=== PATIENT | male | born 1965 | race Caucasian/White ===

== ENCOUNTER 2022-04-27 09:37 | Outpatient (REF) | payer OTHER, SELFPAY ==
--- NOTE | ~2022-04-27 | XR_ITS ---
EXAMINATION: XR ELBOW, RIGHT CLINICAL INFORMATION: Pain COMPARISON: None TECHNIQUE: Three views of the right elbow. FINDINGS: Degenerative changes of the elbow with triceps tendon enthesopathy and degenerative spurring. Soft tissues swelling along the posterior aspect of the arm. Questionable displacement of the fat pads which could be seen in the setting of joint effusion. No discrete fracture line appreciated. No dislocation. XR/XR elbow RT 2V IMPRESSION: Questionable displacement of the fat pads which could be seen in the setting of possible joint effusion with a background of degenerative changes of the elbow. If any history of trauma the questionable effusion would make a radiographically occult fracture difficult to exclude. Soft tissue swelling along the posterior aspect of the arm.
== END 2022-04-27 09:38 | disposition home or self-care (01) ==
LOC: HO.HMGCX 09:37
PROVIDERS: PCP Internal Medicine; Visit Provider Internal Medicine
DX: M25.521 Pain in right elbow (principal)
CPT/HCPCS: 73070

== ENCOUNTER → 2022-05-28 13:53 | Outpatient (BNVA) | payer OTHER, SELFPAY | PROVIDERS: PCP Internal Medicine; Visit Provider Physician Assistant | DX: M77.11 Lateral epicondylitis, right elbow (principal) | CPT/HCPCS: 99202 ==

== ENCOUNTER 2023-02-14 14:45 | Outpatient (AMB) | payer OTHER, SELFPAY ==
--- NOTE | 2023-02-14 15:02 | MHC.OFFVIS ---
Intake Vital Signs 02/14/23 15:03 Height 6 ft Weight 236 lb BMI 32.0 Intake Visit Reasons: ov- Lateral epicondylitis, right elbow Intake Note: Davidson 57 yr old male presents today to review MRI. States he has not had the MRI done due to no one reaching out to schedule appt. Patient states at times after work he feels his elbow gets hot and feels very tender. Allergies No Known Allergies Allergy (Verified 02/14/23 15:05) HPI ov- Lateral epicondylitis, right elbow HPI Details 57-year-old male who returns to the office today for right elbow pain. He continues to have tenderness and warmth in his elbow after work. He did have bursitis and was seen by his pcp who gave him Meloxicam which was helpful. [facility] Medical History Allergic rhinitis Annual physical exam COPD (chronic obstructive pulmonary disease) Social History Housing: House Patient Tobacco Use Status: Current everyday Tobacco user Cigarettes Per Day: 10 Years Smoked: 30 years e-Cigarette/Vaping Use: Never Used Current occupational status: employed Cognitive needs: No Hearing needs: No Vision needs: No Review of Systems Const All systems reviewed & are unremarkable except as noted in HPI and below Physical Exam Vital Signs: BMI result Body Mass Index 32.0 Extrem Other: Right elbow normal to inspection. He does have a trace olecranon bursitis. No redness, warmth or tenderness to palpation. He has full ROM without pain. NVI. Assessment & Plan Assessment & Plan (1) Bursitis: Code(s): M71.9 - Bursopathy, unspecified Plan We discussed conservative management, which includes compression, NSAIDs and activity modifications. If symptoms worsen, the area becomes red, hot and painful, they should return to see me. Otherwise, PRN. Patient Instructions: Scribed for Mallory Ornelas PA-C, by Oli Krishna medical reception specialist, on 02/14/2023 at 3:00 PM EST. Mallory Reyes PA-C, have personally reviewed and agree with the information entered by the scribe. Coding Level of Care Code Est Pt Level 3 (96156) Diagnoses Bursitis M71.9
[2023-02-14 15:03] VITALS: BMI 32.0
== END 2023-02-14 16:17 | disposition home or self-care (01) ==
PROVIDERS: PCP Internal Medicine; Visit Provider Physician Assistant
DX: M77.11 Lateral epicondylitis, right elbow (principal)
CPT/HCPCS: 99213

== ENCOUNTER → 2023-02-14 14:45 | Outpatient (BNVA) | payer OTHER, SELFPAY | PROVIDERS: PCP Internal Medicine; Visit Provider Physician Assistant | DX: M77.11 Lateral epicondylitis, right elbow (principal) | CPT/HCPCS: 99212 ==

== ENCOUNTER 2023-03-10 15:06 | Outpatient (REF) | payer OTHER, SELFPAY ==
[2023-03-10 16:01] LABS: MANUAL DIFF FLAG NO
[2023-03-10 16:26] LABS: Basophils Percent Auto 0.6 % (0-2); Eosinophils Absolute Auto 0.1 X10*3/uL (0.0-0.4); Eosinophils Percent Auto 1.2 % (0-4); Hemoglobin 15.4 g/dl (14.0-18.0); Imm Gran Abs Auto 0.02 X10*3/uL (0.00-0.03); Imm Gran Pct Auto 0.3 % (0.0-0.4); Lymphocytes Absolute Auto 3.1 X10*3/uL (1.2-4.9); Lymphocytes Percent Auto 44.7 % (20-40); Mean Corpuscular HGB Conc 32.8 g/dl (31.0-36.0); Mean Corpuscular Hemoglobin 31.2 pg (27.0-33.0); Mean Corpuscular Volume 95.1 fL (80.0-98.0); Mean Platelet Volume 10.2 fL (9.4-12.4); Monocytes Absolute Auto 0.6 X10*3/uL (0.1-1.2); Neutrophils Absolute Auto 3.1 x10*3/uL (2.0-8.3); Neutrophils Percent Auto 45.2 % (45-73); Platelet Count 186 X10*3/uL (160-400); Red Blood Count 4.94 X10*6/uL (4.60-5.80); Red Cell Distribution Width 12.9 % (11.0-16.0); White Blood Count 6.9 X10*3/uL (4.8-10.8)
[2023-03-10 17:05] LABS: Alanine Aminotransferase 39 U/L (0-40); Albumin Level 4.1 g/dL (3.5-5.0); Alkaline Phosphatase 86 U/L (39-117); Anion Gap 10 (12-20); Aspartate Amino Transferase 35 U/L (5-37); Bilirubin Total 0.4 mg/dL (0.0-1.0); Blood Urea Nitrogen 22 mg/dL (9-16); Calcium 9.3 mg/dL (8.4-10.2); Carbon Dioxide 26 mmol/L (22-29); Chloride 109 mmol/L (96-108); Estimated Glomerular Filt Rate > 60; Glucose Random 83 mg/dL (60-115); Potassium 4.2 mmol/L (3.3-5.1); Sodium 141 mmol/L (135-145); Total Protein 6.9 g/dL (6.5-8.0)
== END 2023-03-10 15:07 | disposition home or self-care (01) ==
LOC: HO.HMGCLDS 15:06
PROVIDERS: PCP Internal Medicine; Visit Provider Internal Medicine
DX: R19.7 Diarrhea, unspecified (principal)
CPT/HCPCS: 36415; 80053; 85025

== ENCOUNTER 2023-03-11 05:45 | Outpatient (REF) | payer OTHER, SELFPAY ==
[2023-03-11 14:10] LABS: E. coli EAEC Detected (Not Detect.)
[2023-03-11 14:11] LABS: Adenovirus F 40/41 Not Detected (Not Detect.); Astrovirus Not Detected (Not Detect.); Campylobacter Not Detected (Not Detect.); Cryptosporidium Not Detected (Not Detect.); Cyclospora cayetanensis Not Detected (Not Detect.); E. coli ETEC Not Detected (Not Detect.); E. coli O157 Not Detected (Not Detect.); Entamoeba histolytica Not Detected (Not Detect.); Giardia lamblia Not Detected (Not Detect.); Norovirus GI/GII Not Detected (Not Detect.); Plesiomonas shigelloides Not Detected (Not Detect.); Rotavirus A Not Detected (Not Detect.); Salmonella Not Detected (Not Detect.); Sapovirus Not Detected (Not Detect.); Shigella sp./EIEC Not Detected (Not Detect.); Vibrio Not Detected (Not Detect.); Vibrio Cholerae Not Detected (Not Detect.); Yersinia enterocolitica Not Detected (Not Detect.)
[2023-03-11 14:13] LABS: E. coli STEC Detected (Not Detect.)
== END 2023-03-11 05:46 | disposition home or self-care (01) ==
LOC: HO.HMGCLNP 05:45
PROVIDERS: PCP Internal Medicine; Visit Provider Internal Medicine
DX: R19.7 Diarrhea, unspecified (principal)
CPT/HCPCS: 87507

== ENCOUNTER 2023-04-08 12:10 | Outpatient (AMB) | payer OTHER, SELFPAY ==
--- NOTE | 2023-04-08 12:21 | MHC.PC.OV ---
Vital Signs 04/08/23 12:22 Height 6 ft Weight 238 lb BMI 32.3 BP 130/80 Blood Pressure Location Lt brachial Position Sitting Pulse 105 H Pulse Source Pulse Oximeter Pulse Oximetry (%) 93 Oxygen Delivery Method Room Air Intake Visit Reasons: Ongoing abdominal pain/diarrhea Allergies No Known Allergies Allergy (Verified 04/08/23 12:22) Tobacco use date assessed: 04/08/23 HPI Ongoing abdominal pain/diarrhea HPI Details Pt presents for f/u of 2 weeks of acute diarrhea. Diarrhea improved after Cipro but patient complains of increase bloating and gas. He denies hematochezia melena fever chills nausea vomiting. [facility] Medical History Annual physical exam Allergic rhinitis COPD (chronic obstructive pulmonary disease) Social History Housing: House Patient Tobacco Use Status: Current everyday Tobacco user Cigarettes Per Day: 10 Years Smoked: 30 years e-Cigarette/Vaping Use: Never Used Current occupational status: employed Cognitive needs: No Hearing needs: No Vision needs: No Questionnaire Thrive Questionnaire Date Thrive assessed: 10/09/21 Review of Systems Const All systems reviewed & are unremarkable except as noted in HPI and below Reports no additional complaints Eyes Reports no additional complaints ENT Reports no additional complaints Card Reports no additional complaints Resp Reports no additional complaints GI Reports no additional complaints Reports no additional complaints Physical exam (Primary Care) Vital Signs: Last Vital Signs Pulse 105 H 04/08/23 12:22 BP 140/90 H 04/08/23 12:22 Pulse Ox 93 04/08/23 12:22 Oxygen Delivery Method Room Air 04/08/23 12:22 BMI result Body Mass Index 32.3 Tobacco/Smoking Status: Tobacco use Status Tobacco use date assessed 04/08/23 04/08/23 12:24 Patient Tobacco Use Status Current everyday Tobacco 04/08/23 12:24 e-Cigarette/Vaping Use Never Used 04/08/23 12:24 Thrive Assessment: Date of Thrive Assessment Date Thrive assessed 10/09/21 04/08/23 12:24 Const General: no acute distress HENMT Ears: hearing grossly normal bilaterally Face and sinus: Yes normal facial exam Eyes General: appearance normal, both eyes and all related structures Resp Effort & Inspection: normal respiratory effort Auscultation: clear to auscultation bilaterally Cardio Rhythm: regular rhythm Heart sounds: S1 normal heart sound present and S2 normal heart sound present GI Inspection: Yes normal to inspection Palpation (GI): Soft to palpation Percussion: Yes normal to percussion Auscultation: normal bowel sounds Assessment and Plan Assessment & Plan (1) Diarrhea: Code(s): R19.7 - Diarrhea, unspecified Plan: Supportive care and diet changing including avoiding raw meat products discussed with the patient He was advised to take probiotics for 2 weeks if the symptoms persist patient will be referred to GI (2) COPD (chronic obstructive pulmonary disease): Code(s): J44.9 - Chronic obstructive pulmonary disease, unspecified Plan: Continue Trelegy (3) Hx of colonoscopy: Comment: 2009, Dr. Melgar. Pt refused colonoscopy 03/23, check Cologuard. Code(s): Z98.890 - Other specified postprocedural states Orders: Referrals Cologuard Test Z12.11 - Encounter for screening for malignant neoplasm of colon, Z12.12 - Encounter for screening for malignant neoplasm of rectum Coding Level of Care Code Est Pt Level 4 (61550) Diagnoses Diarrhea R19.7 COPD (chronic obstructive pulmonary disease) J44.9 Hx of colonoscopy Z98.890
[2023-04-08 12:22] VITALS: BP 130/80; PULSE 105; O2SAT 93; BMI 32.3
== END 2023-04-08 13:09 | disposition home or self-care (01) ==
PROVIDERS: PCP Internal Medicine; Visit Provider Internal Medicine
DX: R19.7 Diarrhea, unspecified (principal); J44.9 Chronic obstructive pulmonary disease, unspecified; Z98.890 Other specified postprocedural states
CPT/HCPCS: 99214

== ENCOUNTER 2023-05-04 12:20 | Outpatient (AMB) | payer OTHER, SELFPAY ==
--- NOTE | 2023-05-04 12:31 | MHC.PC.OV ---
Vital Signs 05/04/23 12:33 Height 6 ft Weight 236 lb BMI 32.0 BP 126/85 Blood Pressure Location Lt brachial Position Sitting Pulse 105 H Pulse Source Pulse Oximeter Pulse Oximetry (%) 96 Oxygen Delivery Method Room Air Intake Visit Reasons: Knee pain Intake Note: Pt is here today for a sick visit. Pt c/o R knee discomfort for couple of months now. Pt states that the pain is getting worst now. Allergies No Known Allergies Allergy (Verified 05/04/23 12:36) Medication List - Last Reconciled 05/04/23 by Tasha Sinha MD clobetasol 0.05% 1 appl topical DAILY fluticasone propionate 50 mcg/actuation 1 spray intranasal DAILY nfkbqdflovo-zwooctxrf-yrrrwtvv 100-62.5-25 mcg (Trelegy Ellipta) 1 inh inhalation DAILY Tobacco use date assessed: 04/08/23 Dental Screening Dental Screen Date: 05/04/23 Did you have a dental visit in the last 12 months?: Yes Did you have a dental problem in the last 6 months where you did not have access to dental care?: No Was dental information given to patient?: Patient has dentist HPI Knee pain HPI Details Pt presents c/o R knee stiffness, discomfort worse when walking, occasionally instability and crepitus for 2 months. Patient denies any injury or joint swelling. He wants to see ortho for evaluation. COPD is stable on Trelegy. [facility] Medical History Annual physical exam Allergic rhinitis COPD (chronic obstructive pulmonary disease) Social History Housing: House Patient Tobacco Use Status: Current everyday Tobacco user Cigarettes Per Day: 10 Years Smoked: 30 years e-Cigarette/Vaping Use: Never Used Current occupational status: employed Cognitive needs: No Hearing needs: No Vision needs: No Questionnaire PHQ-9 Over the last 2 weeks, how often have you been bothered by any of the following problems? 1. Little interest or pleasure in doing things: not at all 2. Feeling down, depressed, or hopeless: not at all 3. Trouble falling or staying asleep, or sleeping too much: nearly every day 4. Feeling tired or having little energy: not at all 5. Poor appetite or overeating: not at all 6. Feeling bad about yourself - or that you are a failure or have let yourself or your family down: not at all 7. Trouble concentrating on things, such as reading the newspaper or watching television: not at all 8. Moving or speaking so slowly that other people could have noticed. Or the opposite - being so fidgety or restless that you have been moving around a lot more than usual: not at all 9. Thoughts that you would be better off or of hurting yourself in some way: not at all Total score: 3 Depression Screening Interpretation: Negative Depression Screening Done: Yes Source: Developed by Drs. Jeremy Brown, Annie Hammond, Gerry Donald and colleagues, with an educational alessandra from [employer]. Thrive Questionnaire Date Thrive assessed: 05/04/23 I am a: Patient What is your living situation today?: I have a steady place to live Within the past 12 months, did the food you bought not last and you didn't have the money to get more?: Never true Within the past 12 months, did you worry whether your food would run out before you got money to buy more?: Never true Do you have trouble paying for medicines?: No Do you have trouble getting transportation to medical appointments?: No Do you have trouble paying your heating and electricity bill?: No Do you have trouble taking care of your child, family member or friend?: No Do you have trouble with day-to-day activities such as bathing, preparing meals, shopping, managing finances, etc.?: No Are you currently unemployed and looking for a job?: No Are you interested in more education?: No Please select the resources that you would like help with: None MARCELLA-7 AMB Questionnaire MARCELLA-7 Date MARCELLA - 7 assessed: 05/04/23 Feeling nervous, anxious, or on edge: 0 = Not at all Not being able to stop or control worryin = Not at all Worrying too much about different things: 0 = Not at all Trouble relaxin = Not at all Being so restless that it is hard to sit still: 0 = Not at all Becoming easily annoyed or irritable: 0 = Not at all Feeling afraid as if something awful might happen: 0 = Not at all Total MARCELLA-7 score (0-4 normal; 5-9 mild; 10-14 moderate; 15-21 severe): 0 Source: Developed by Drs. Jeremy Brown, Annie Hammond, Gerry Donald and colleagues, with an educational alessandra from [employer]. Review of Systems Const All systems reviewed & are unremarkable except as noted in HPI and below Reports no additional complaints Eyes Reports no additional complaints ENT Reports no additional complaints Card Reports no additional complaints GI Reports no additional complaints Reports no additional complaints Physical exam (Primary Care) Vital Signs: Last Vital Signs Pulse 105 H 05/04/23 12:33 BP 138/96 H 05/04/23 12:33 Pulse Ox 96 05/04/23 12:33 Oxygen Delivery Method Room Air 05/04/23 12:33 BMI result Body Mass Index 32.0 Tobacco/Smoking Status: Tobacco use Status Tobacco use date assessed 04/08/23 05/04/23 12:33 Patient Tobacco Use Status Current everyday Tobacco 05/04/23 12:33 e-Cigarette/Vaping Use Never Used 05/04/23 12:33 PHQ-9: PHQ-9 Score PHQ-9: Total score 3 05/04/23 12:38 Depression Screening Interpretation: Negative Thrive Assessment: Date of Thrive Assessment Date Thrive assessed 05/04/23 05/04/23 12:38 Const General: no acute distress HENMT Head: Yes normal to inspection Throat: Yes posterior oropharynx normal Neck Neck: Yes supple Resp Effort & Inspection: normal respiratory effort Auscultation: diminished lung sounds Cardio Rhythm: regular rhythm Heart sounds: S1 normal heart sound present and S2 normal heart sound present Extrem Other: This is slightly decreased range of motion and crepitus of right knee, no soft tissue swelling erythema warmth General: Yes no clubbing, cyanosis or edema Assessment and Plan Assessment & Plan (1) Right knee pain: Code(s): M25.561 - Pain in right knee Plan: Supportive care discussed with the patient. He declined x-ray and requested referral to orthopedic surgeon (2) COPD (chronic obstructive pulmonary disease): Code(s): J44.9 - Chronic obstructive pulmonary disease, unspecified Plan: cont Trelegy Orders: Referrals Orthopedics Referral M25.561 - Pain in right knee Coding Level of Care Code Est Pt Level 3 (59463) Diagnoses Right knee pain M25.561 COPD (chronic obstructive pulmonary disease) J44.9
[2023-05-04 12:33] VITALS: BP 126/85; PULSE 105; O2SAT 96; BMI 32.0
== END 2023-05-04 13:40 | disposition home or self-care (01) ==
PROVIDERS: PCP Internal Medicine; Visit Provider Internal Medicine
DX: M25.561 Pain in right knee (principal); J44.9 Chronic obstructive pulmonary disease, unspecified
CPT/HCPCS: 99213

== ENCOUNTER 2023-06-20 08:31 | Outpatient (AMB) | payer OTHER, SELFPAY ==
--- NOTE | 2023-06-20 08:42 | A.OFFVIS_ITS ---
Intake Vital Signs 06/20/23 08:43 Height 6 ft Weight 236 lb BMI 32.0 Intake Visit Reasons: new Prob- Pain in right knee Intake Note: Davidson michaels 58 year old male presents today with complaints of right knee pain. Patient reports discomfort in the anterior aspect of knee for about 2 months that came on suddenly. His discomfort is constant and feels like his knee will give out with walking. No previous tx. Allergies No Known Allergies Allergy (Verified 06/20/23 08:49) HPI new Prob- Pain in right knee HPI Details 58-year-old male who presents to the off ice today for evaluation of right knee pain for 2 months. He states he has constant discomfort in the anterior aspect of his knee which is aggravated with ambulation and stair use. He denies any pain at night. He also c/o his knee giving out with ambulation. He has not had any treatment for his knee and denies any recent injury. He is currently working and works for 10 hours a day. [facility] Medical History Annual physical exam Allergic rhinitis COPD (chronic obstructive pulmonary disease) Social History Housing: House Patient Tobacco Use Status: Current everyday Tobacco user Cigarettes Per Day: 10 Years Smoked: 30 years e-Cigarette/Vaping Use: Never Used Current occupational status: employed Cognitive needs: No Hearing needs: No Vision needs: No Review of Systems Const All systems reviewed & are unremarkable except as noted in HPI and below Physical Exam Vital Signs: BMI result Body Mass Index 32.0 Extrem Other: Right knee: Skin intact, no erythema or joint effusion. Lateral retropatellar tenderness present. Full ROM with crepitus. Negative Anju?s. No ligamentous laxity. NVI. Results Reviewed Results Reviewed: Xrays were obtained in the office today and personally reviewed by me of the right knee show mild Oa with lateralization of the patella Assessment & Plan Assessment & Plan (1) Patellofemoral arthritis of right knee: Code(s): M17.11 - Unilateral primary osteoarthritis, right knee Plan We discussed options which include PT, NSAIDs and injections. The patient will defer on the injection today and proceed with PT and NSAIDs. He was also placed in a Janumet knee brace in the office today. If symptoms persist, the patient will contact me for an injection, otherwise, PRN. Orders: Orders PT Evaluation and Treatment Today M17.11 - Unilateral primary osteoarthritis, r ight knee XR knee standing BI Today M25.561 - Pain in right knee, M25.562 - Pain in left knee XR knee RT 2V Today M25.569 - Pain in unspecified knee Patient Instructions: Scribed for Mallory Ornelas PA-C, by Oli Krishna medical insurance biller, on 06/20/2023 at 8:30 AM EST. Mallory Reyes PA-C, have personally reviewed and agree with the information entered by the scribe. Coding Level of Care Code Est Pt Level 3 (09885) Diagnoses Patellofemoral arthritis of right knee M17.11
[2023-06-20 08:43] VITALS: BMI 32.0
== END 2023-06-20 09:21 | disposition home or self-care (01) ==
PROVIDERS: PCP Internal Medicine; Visit Provider Physician Assistant
DX: M17.11 Unilateral primary osteoarthritis, right knee (principal)
CPT/HCPCS: 99213

== ENCOUNTER 2023-06-20 09:12 | Outpatient (REF) | payer OTHER, SELFPAY ==
--- NOTE | ~2023-06-20 | XR_ITS ---
EXAMINATION: XR RIGHT KNEE XR AP STANDING BILATERAL KNEES CLINICAL INFORMATION: Pain in right knee. COMPARISON: None available. TECHNIQUE: AP standing view of bilateral knees. Lateral and sunrise views of the right knee. FINDINGS: Single AP view of the left knee demonstrates mild medial and lateral joint space loss with tiny marginal osteophytes. Right Knee: Moderate joint effusion. Mild medial and lateral joint space loss with tiny tricompartmental osteophytes. XR/XR knee standing BI IMPRESSION: Mild degenerative changes. Moderate joint effusion.
--- NOTE | ~2023-06-20 | XR_ITS ---
EXAMINATION: XR RIGHT KNEE XR AP STANDING BILATERAL KNEES CLINICAL INFORMATION: Pain in right knee. COMPARISON: None available. TECHNIQUE: AP standing view of bilateral knees. Lateral and sunrise views of the right knee. FINDINGS: Single AP view of the left knee demonstrates mild medial and lateral joint space loss with tiny marginal osteophytes. Right Knee: Moderate joint effusion. Mild medial and lateral joint space loss with tiny tricompartmental osteophytes. XR/XR knee RT 2V IMPRESSION: Mild degenerative changes. Moderate joint effusion.
== END 2023-06-20 09:13 | disposition home or self-care (01) ==
LOC: HO.HOSX 09:12
PROVIDERS: Visit Provider Physician Assistant
DX: M17.11 Unilateral primary osteoarthritis, right knee (principal); M25.562 Pain in left knee
CPT/HCPCS: 73560; 73565

== ENCOUNTER 2023-08-26 13:56 | Outpatient (RCR) | payer OTHER, SELFPAY ==
--- NOTE | 2023-08-26 14:47 | MHC.PT.EP ---
[facility] [place] Office [place] Office [place] Office [address] Joselyn Matthew [address] [phone] F: [phone] F: [phone] F: [phone] F: [phone] Physical Therapy Plan of Care Date of Evaluation: 08/26/23 Date of Surgery: Diagnosis: patellofemoral arthritis of R knee. Assessment: Patient is a 58 year old R handed male who presents with s/s consistent with R knee patellofemoral joing OA, R knee pain. 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 Patient past medical history includes back pain and COPD, ashtma.. Current impairments include pain, flexibility, ROM, activity tolerance and functional mobility. Functional limitations include decreased ability to stand, knee, squat, and work in certain positions. Patient is motivated with good rehab potential. Skilled PT will address impairments and functional limitations in order to achieve goals. Frequency and Duration: The patient will be seen 1x/week for 6 weeks as needed. Short Term Goals: I with HEP - 2 weeks Return to work pain free - 4 weeks Hypoid Gear Generator Goals: LEFS 70/80 - 6 weeks HS/Gastroc/Quad flex WNL Normal patellar mob - 6 weeks Crepidus absent - 6 weeks Treatment Plan: Modalities to reduce pain, spasms and effusion. Manual therapy to restore motion and function. Therapeutic exercise to improve strength and flexibility. Neuromuscular re-education for posture and balance. Therapeutic activities to return to functional activities of daily living. Electronically signed by: Ced Montalvo, PT Please sign and return to therapist. Thank you for your referral.
--- NOTE | 2024-05-09 10:10 | MHC.PT.DC ---
[facility] [place] Office [place] Office [place] Office [address] Joselyn Matthew [address] [phone] F: [phone] F: [phone] F: [phone] F: [phone] Physical Therapy Discharge Report Diagnosis: patellofemoral arthritis of R knee. Date of Surgery: Date of Evaluation: 08/26/23 Date of Discharge: 09/02/23 Treatments to Date: 1 Cancellations to Date: No Shows to Date: Discharge Status: Patient Elected to Stop Discharge Summary: Patient is a 58 year old R handed male who presents with s/s consistent with R knee patellofemoral joing OA, R knee pain. 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 Patient past medical history includes back pain and COPD, ashtma.. Current impairments include pain, flexibility, ROM, activity tolerance and functional mobility. Functional limitations include decreased ability to stand, knee, squat, and work in certain positions. Patient is motivated with good rehab potential. Skilled PT will address impairments and functional limitations in order to achieve goals. Electronically signed by: Ced Montalvo, PT Please sign and return to therapist. Thank you for your referral.
== END 2024-05-09 10:10 | disposition home or self-care (01) ==
LOC: HO.PTCHIC 13:56
PROVIDERS: PCP Internal Medicine; Visit Provider Physician Assistant
DX: M17.11 Unilateral primary osteoarthritis, right knee (principal)
CPT/HCPCS: 97110; 97161

== ENCOUNTER 2024-11-14 14:01 | Outpatient (AMB) | payer OTHER, SELFPAY ==
[2024-11-14 14:21] VITALS: BP 130/86; PULSE 98; RESP 18; TEMP 36.8; O2SAT 95; BMI 33.1
--- NOTE | 2024-11-14 14:21 | MHC.PC.OV ---
Vital Signs 11/14/24 14:21 Height 6 ft Weight 244 lb BMI 33.1 BP 130/86 Blood Pressure Location Lt brachial Position Sitting Respiration 18 Pulse 98 Pulse Source Pulse Oximeter Temp 98.2 F Temp Source Oral Pulse Oximetry (%) 95 Oxygen Delivery Method Room Air Intake Visit Reasons: PE Intake Note: Pt is here today for PE. Pt states that he would like a referral to General surgery for a lump on L finger. Allergies No Known Allergies Allergy (Verified 11/14/24 14:22) Medication List - Last Reconciled 11/14/24 by Tasha Sinha MD albuterol sulfate 90 mcg/actuation 2 puffs inhalation QID clobetasol 0.05% 1 appl topical DAILY fluticasone propionate 50 mcg/actuation 1 spray intranasal DAILY Tobacco use date assessed: 11/14/24 Dental Screening Dental Screen Date: 11/14/24 Did you have a dental visit in the last 12 months?: Yes Did you have a dental problem in the last 6 months where you did not have access to dental care?: No Was dental information given to patient?: Patient has dentist HPI PE HPI Details Patient presents for a physical. He was seen by laboratory supervisor at [facility] in July by telehealth. Patient had pulmonary function tests done which revealed mild obstruction normal lung volumes normal CO2 diffusing capacity. Patient misunderstood recommendation to use albuterol 4 times a day. He stopped using Trelegy. Patient reports episodes of wheezing and coughing on daily basis also at night. He denies PND or orthopnea. Patient will have right knee surgery. He complains of right middle finger cyst which interferes with patient's ability to use his hand and would like to be referred to hand surgeon. [facility] Medical History (Updated 11/14/24 @ 15:11 by Tasha Sinha MD) Annual physical exam Allergic rhinitis COPD (chronic obstructive pulmonary disease) Social History Housing: House Patient Tobacco Use Status: Former Tobacco user (December 2023) Cigarettes Per Day: 10 Years Smoked: 30 years e-Cigarette/Vaping Use: Never Used service: No Current occupational status: employed Cognitive needs: No Hearing needs: No Vision needs: No Questionnaire PHQ-9 Over the last 2 weeks, how often have you been bothered by any of the following problems? 1. Little interest or pleasure in doing things: not at all 2. Feeling down, depressed, or hopeless: not at all 3. Trouble falling or staying asleep, or sleeping too much: nearly every day 4. Feeling tired or having little energy: not at all 5. Poor appetite or overeating: not at all 6. Feeling bad about yourself - or that you are a failure or have let yourself or your family down: not at all 7. Trouble concentrating on things, such as reading the newspaper or watching television: not at all 8. Moving or speaking so slowly that other people could have noticed. Or the opposite - being so fidgety or restless that you have been moving around a lot more than usual: not at all 9. Thoughts that you would be better off or of hurting yourself in some way: not at all Total score: 3 Depression Screening Interpretation: Negative Depression Screening Done: Yes 84222 - PHQ-9 Billing: Yes Source: Developed by Drs. Jeremy Brown, Annie Hammond, Gerry Donald and colleagues, with an educational alessandra from [employer]. Thrive Questionnaire Date Thrive assessed: 11/14/24 I am a: Patient What is your living situation today?: I have a steady place to live Within the past 12 months, did the food you bought not last and you didn't have the money to get more?: Never true Within the past 12 months, did you worry whether your food would run out before you got money to buy more?: Never true Do you have trouble paying for medicines?: No Do you have trouble getting transportation to medical appointments?: No Do you have trouble paying your heating and electricity bill?: No Do you have trouble taking care of your child, family member or friend?: No Do you have trouble with day-to-day activities such as bathing, preparing meals, shopping, managing finances, etc.?: No Are you currently unemployed and looking for a job?: No Are you interested in more education?: No Please select the resources that you would like help with: None THRIVE Score: 0 AUDIT C Alcohol Use Questionnaire (AUDIT-C) 1. How often do you have a drink containing alcohol?: Monthly or less 2. How many drinks containing alcohol do you have on a typical day when you are drinking?: 1 or 2 3. How often do you have six or more drinks on one occasion?: Never Total Score: 1 MARCELLA-7 AMB Questionnaire MARCELLA-7 Date MARCELLA - 7 assessed: 11/14/24 Feeling nervous, anxious, or on edge: 0 = Not at all Not being able to stop or control worryin = Not at all Worrying too much about different things: 0 = Not at all Trouble relaxin = Not at all Being so restless that it is hard to sit still: 0 = Not at all Becoming easily annoyed or irritable: 0 = Not at all Feeling afraid as if something awful might happen: 0 = Not at all Total MARCELLA-7 score (0-4 normal; 5-9 mild; 10-14 moderate; 15-21 severe): 0 Source: Developed by Drs. Jeremy Brown, Annie Hammond, Gerry Donald and colleagues, with an educational alessandra from [employer]. MARCELLA-7 Assessment Billing MARCELLA-7 Assessment Tool: MARCELLA-7 Assessment 55860 Review of Systems Const All systems reviewed & are unremarkable except as noted in HPI and below Eyes Reports no additional complaints ENT Reports no additional complaints Card Reports no additional complaints Resp Reports no additional complaints GI Reports no additional complaints Reports no additional complaints Physical exam (Primary Care) Vital Signs: Last Vital Signs Temp 98.2 F 11/14/24 14:21 Pulse 98 11/14/24 14:21 Resp 18 11/14/24 14:21 BP 130/86 11/14/24 14:21 Pulse Ox 95 11/14/24 14:21 Oxygen Delivery Method Room Air 11/14/24 14:21 BMI result Body Mass Index 33.1 Tobacco/Smoking Status: Tobacco use Status Tobacco use date assessed 11/14/24 11/14/24 14:24 Patient Tobacco Use Status Former Tobacco user (11/14/24 14:37 2023) e-Cigarette/Vaping Use Never Used 11/14/24 14:24 PHQ-9: PHQ-9 Score PHQ-9: Total score 3 11/14/24 14:24 Depression Screening Interpretation: Negative Thrive Assessment: Date of Thrive Assessment Date Thrive assessed 11/14/24 11/14/24 14:24 Const General: no acute distress HENMT Head: Yes normal to inspection Face and sinus: Yes normal facial exam Mouth: Normal oral and palatal mucosa present Throat: Yes posterior oropharynx normal Neck Neck: Yes no lymphadenopathy and Yes supple Resp Effort & Inspection: normal respiratory effort Auscultation: wheezes and diminished lung sounds Cardio Rhythm: regular rhythm Heart sounds: S1 normal heart sound present and S2 normal heart sound present GI Inspection: Yes normal to inspection Palpation (GI): Soft to palpation Percussion: Yes normal to percussion Auscultation: normal bowel sounds Coding Level of Care Code Est Pt Prev Care 40-64y(34539) Diagnoses COPD (chronic obstructive pulmonary disease) J44.9 Annual physical exam Z00.00 Additional Codes MARCELLA-7 Assessment Billing - MARCELLA-7 Assessment Tool: MARCELLA-7 Assessment 03038 ([id number]) PHQ-9 - 23090 - PHQ-9 Billing: Yes ([id number]) Assessment & Plan Assessment & Plan (1) COPD (chronic obstructive pulmonary disease): Comment: PFT 06/2024 mild obstruction normal lung volumes normal CO diffusing capacity, had a telehealth visit with laboratory supervisor Dr. Hernandez 07/2024, no f/u Code(s): J44.9 - Chronic obstructive pulmonary disease, unspecified Category: Medical Plan: Patient was advised to restart Trelegy and use albuterol as needed only, he will follow-up in 1 month (2) Annual physical exam: Code(s): Z00.00 - Encounter for general adult medical examination without abnormal findings Category: Medical Plan: Well-balanced diet regular physical activity discussed with the patient. He declined colonoscopy Cologuard will be ordered Orders: Orders UA w Microscopic Today J44.9 - Chronic obstructive pulmonary disease, unspecified, Z00.00 - Encounter for general adult medical examination without abnormal findings, Z98.890 - Other specified postprocedural states Comprehensive [place]. Panel Fast Today J44.9 - Chronic obstructive pulmonary disease, unspecified, Z00.00 - Encounter for general adult medical examination without abnormal findings, Z98.890 - Other specified postprocedural states Complete Blood Count Auto Diff Today J44.9 - Chronic obstructive pulmonary disease, unspecified, Z00.00 - Encounter for general adult medical examination without abnormal findings, Z98.890 - Other specified postprocedural states Lipid Panel Today J44.9 - Chronic obstructive pulmonary disease, unspecified, Z00.00 - Encounter for general adult medical examination without abnormal findings, Z98.890 - Other specified postprocedural states PSA,Total (Free>4and<10) Today J44.9 - Chronic obstructive pulmonary disease, unspecified, Z00.00 - Encounter for general adult medical examination without abnormal findings, Z98.890 - Other specified postprocedural states Referrals Hand Surgery Referral M67.441 - Ganglion, right hand Cologuard Test Z12.11 - Encounter for screening for malignant neoplasm of colon, Z12.12 - Encounter for screening for malignant neoplasm of rectum Medications: Refilled lfmabnhrlxm-stergjfwh-uqbcbyqm 100-62.5-25 mcg (Trelegy Ellipta) 1 inh inhalation DAILY 60 ea 4RF J44.9 - Chronic obstructive pulmonary disease, unspecified
== END 2024-11-14 15:13 | disposition home or self-care (01) ==
LOC: HO.HMCC 14:02
PROVIDERS: PCP Internal Medicine; Visit Provider Internal Medicine
DX: J44.9 Chronic obstructive pulmonary disease, unspecified (principal); Z00.00 Encounter for general adult medical examination without abnormal findings

== ENCOUNTER → 2024-11-14 14:01 | Outpatient (BNVA) | payer OTHER, SELFPAY | PROVIDERS: PCP Internal Medicine; Visit Provider Internal Medicine | DX: Z00.00 Encounter for general adult medical examination without abnormal findings (principal); J44.9 Chronic obstructive pulmonary disease, unspecified | CPT/HCPCS: 96127 ==

== ENCOUNTER 2024-11-19 06:06 | Outpatient (REF) | payer OTHER, SELFPAY ==
[2024-11-19 10:03] LABS: MANUAL DIFF FLAG NO
[2024-11-19 10:07] LABS: Basophils Absolute Auto 0.1 X10*3/uL (0.0-0.2); Eosinophils Absolute Auto 0.1 X10*3/uL (0.0-0.4); Eosinophils Percent Auto 2.2 % (0-4); Hematocrit 44.7 % (42.0-52.0); Hemoglobin 14.2 g/dl (14.0-18.0); Imm Gran Abs Auto 0.02 X10*3/uL (0.00-0.03); Imm Gran Pct Auto 0.3 % (0.0-0.4); Lymphocytes Absolute Auto 2.8 X10*3/uL (1.2-4.9); Lymphocytes Percent Auto 45.5 % (20-40); Mean Corpuscular HGB Conc 31.8 g/dl (31.0-36.0); Mean Corpuscular Hemoglobin 30.5 pg (27.0-33.0); Mean Corpuscular Volume 95.9 fL (80.0-98.0); Mean Platelet Volume 9.7 fL (9.4-12.4); Monocytes Absolute Auto 0.5 X10*3/uL (0.1-1.2); Monocytes Percent Auto 7.9 % (2-11); Neutrophils Absolute Auto 2.7 x10*3/uL (2.0-8.3); Neutrophils Percent Auto 43.1 % (45-73); Platelet Count 193 X10*3/uL (160-400); Red Blood Count 4.66 X10*6/uL (4.60-5.80); White Blood Count 6.2 X10*3/uL (4.8-10.8)
[2024-11-19 10:15] LABS: Appearance Urine Clear; Color Urine Yellow; Glucose Urine UA Negative (Negative); Leukocyte Esterase Urine Negative (Negative); Nitrite Urine Negative (Negative); PH 5.5 (5.0-9.0); Specific Gravity - Urine 1.025 (1.005-1.025); Urine Blood Negative (Negative); Urine Ketones Negative (Negative); Urine Protein Trace mg/dL (Neg-Trace)
[2024-11-19 10:20] LABS: Bacteria Urine None Seen (None Seen); Hyaline Casts Urine 0-2 /LPF (0-2); RBC Urine 0-2 /HPF (0-2); Squamous Epithelial Cell Urine 0-2 /HPF (0-2); WBC Urine 0-5 /HPF (0-5)
[2024-11-19 10:26] LABS: Alanine Aminotransferase 40 U/L (0-40); Albumin Level 3.9 g/dL (3.5-5.0); Alkaline Phosphatase 93 U/L (39-117); Anion Gap 11 (12-20); Aspartate Amino Transferase 36 U/L (5-37); Bilirubin Total 0.5 mg/dL (0.0-1.0); Blood Urea Nitrogen 17 mg/dL (9-16); Calcium 8.7 mg/dL (8.4-10.2); Carbon Dioxide 24 mmol/L (22-29); Chloride 110 mmol/L (96-108); Cholesterol 176 mg/dL (<200); Estimated Glomerular Filt Rate > 60; Glucose Fasting 110 mg/dL (60-99); HDL Cholesterol 49 mg/dL (>40); LDL Cholesterol Calculated 96 mg/dL (<100); Potassium 4.6 mmol/L (3.3-5.1); Sodium 140 mmol/L (135-145); Total Protein 6.7 g/dL (6.5-8.0); Triglycerides 159 mg/dL (<150)
[2024-11-19 10:36] LABS: PSA,Total (Free>4and<10) 0.45 ng/mL (0.00-4.00)
== END 2024-11-19 06:07 | disposition home or self-care (01) ==
LOC: HO.HMGCLDS 06:06
PROVIDERS: PCP Internal Medicine; Visit Provider Internal Medicine
DX: Z00.00 Encounter for general adult medical examination without abnormal findings (principal); J44.9 Chronic obstructive pulmonary disease, unspecified; Z98.890 Other specified postprocedural states; Z12.5 Encounter for screening for malignant neoplasm of prostate; Z13.6 Encounter for screening for cardiovascular disorders
CPT/HCPCS: 36415; 80053; 80061; 81001; 84153; 85025

== ENCOUNTER 2025-07-03 09:38 | Outpatient (AMB) | payer OTHER, SELFPAY ==
[2025-07-03 09:40] VITALS: BP 158/96; PULSE 105; RESP 17; O2SAT 96; BMI 33.6
--- NOTE | 2025-07-03 09:40 | A.OFFPC_ITS ---
Vital Signs 07/03/25 09:40 07/03/25 10:51 Height 6 ft Weight 248 lb BMI 33.6 BP 158/96 H 130/85 Blood Pressure Location Lt brachial Rt brachial Position Sitting Sitting Respiration 17 Pulse 105 H Pulse Source Pulse Oximeter Pulse Oximetry (%) 96 Oxygen Delivery Method Room Air Intake Visit Reasons: elevated BP Intake Note: Pt is here today for same day sick visit. Pt c/o elevated BP for 3 weeks and night sweats. Allergies No Known Allergies Allergy (Verified 07/03/25 09:42) Medication List - Last Reconciled 07/03/25 by Tasha Sinha MD albuterol sulfate 90 mcg/actuation 2 puffs inhalation QID clobetasol 0.05% 1 appl topical DAILY fluticasone propionate 50 mcg/actuation 1 spray intranasal DAILY dvukaifxmrg-iafqjqmlh-dmlnrlkr 100-62.5-25 mcg (Trelegy Ellipta) 1 inh inhalation DAILY Tobacco use date assessed: 07/03/25 Dental Screening Dental Screen Date: 11/14/24 HPI elevated BP HPI Details Patient presents complaining of elevated blood pressure during the dentist visit 2 days ago. Patient denies chest pain shortness or breath headaches. He had excessive amount of alcohol 4 days ago and has been drinking 5 cups of coffee a day. COPD is stable on Breztri patient quit smoking 1 year ago. [facility] Medical History (Updated 07/03/25 @ 10:50 by Tasha Sinha MD) Elevated blood pressure reading Smoker Annual physical exam Allergic rhinitis COPD (chronic obstructive pulmonary disease) Social History Housing: House Patient Tobacco Use Status: Former Tobacco user (December 2023) Cigarettes Per Day: 10 Years Smoked: 30 years e-Cigarette/Vaping Use: Never Used service: No Current occupational status: employed Cognitive needs: No Hearing needs: No Vision needs: No Questionnaire Thrive Questionnaire Date Thrive assessed: 11/14/24 MARCELLA-7 AMB Questionnaire MARCELLA-7 Date MARCELLA - 7 assessed: 11/14/24 Source: Developed by Drs. Jeremy Brown, Annie Hammond, Gerry Donald and colleagues, with an educational alessandra from [employer] Review of Systems Const All systems reviewed & are unremarkable except as noted in HPI and below ENT Reports no additional complaints Card Reports no additional complaints Resp Reports no additional complaints GI Reports no additional complaints Reports no additional complaints Physical exam (Primary Care) Vital Signs: Last Vital Signs Pulse 105 H 07/03/25 09:40 Resp 17 07/03/25 09:40 BP 158/96 H 07/03/25 09:40 Pulse Ox 96 07/03/25 09:40 Oxygen Delivery Method Room Air 07/03/25 09:40 BMI result Body Mass Index 33.6 Tobacco/Smoking Status: Tobacco use Status Tobacco use date assessed 07/03/25 07/03/25 09:44 Patient Tobacco Use Status Former Tobacco user (07/03/25 09:44 2023) e-Cigarette/Vaping Use Never Used 07/03/25 09:44 Thrive Assessment: Date of Thrive Assessment Date Thrive assessed 11/14/24 07/03/25 09:44 Const General: no acute distress HENMT Head: Yes normal to inspection Resp Effort & Inspection: normal respiratory effort Auscultation: clear to auscultation bilaterally Cardio Rhythm: regular rhythm Heart sounds: S1 normal heart sound present and S2 normal heart sound present GI Inspection: Yes normal to inspection Palpation (GI): Soft to palpation Percussion: Yes normal to percussion Coding Level of Care Code Est Pt Level 4 (82747) Diagnoses COPD (chronic obstructive pulmonary disease) J44.9 Smoker F17.200 Elevated blood pressure reading R03.0 Assessment & Plan Assessment & Plan (1) COPD (chronic obstructive pulmonary disease): Comment: PFT 06/2024 mild obstruction normal lung volumes normal CO diffusing capacity, had a telehealth visit with legal word processor Dr. Hernandez 07/2024, no f/u Code(s): J44.9 - Chronic obstructive pulmonary disease, unspecified Category: Medical Plan: cont Breztri (2) Smoker: Comment: 1PPD x 30 yrs, quit 2023 Code(s): F17.200 - Nicotine dependence, unspecified, uncomplicated Category: Social Hx Plan: Referred to lung cancer screening (3) Elevated blood pressure reading: Code(s): R03.0 - Elevated blood-pressure reading, without diagnosis of hypertension Category: Medical Plan: EKG showed normal sinus rhythm no ST-T changes Patient declined taking medications. He will be monitoring his blood pressure at home daily. Low- sodium diet increase physical activity weight loss discussed with the patient fo llow-up in 1 month Orders: Orders Comprehensive [place]. Panel Fast 1 Month F17.200 - Nicotine dependence, unspecified, uncomplicated, J44.9 - Chronic obstructive pulmonary disease, unspecified Hemoglobin A1c Today R73.9 - Hyperglycemia, unspecified Complete Blood Count Auto Diff 1 Month F17.200 - Nicotine dependence, unspecified, uncomplicated, J44.9 - Chronic obstructive pulmonary disease, unspecified Lipid Panel 1 Month F17.200 - Nicotine dependence, unspecified, uncomplicated, J44.9 - Chronic obstructive pulmonary disease, unspecified Referrals Lung Cancer Screening Referral F17.200 - Nicotine dependence, unspecified, uncomplicated Medications: [facility] Aerosphere 160-9-4.8 mcg/actuation (qahrzhjghl-vrckhhcl-rpmslddpig) 2 inhalations inhalation BID 10.7 grams 4RF NS
[2025-07-03 10:51] VITALS: BP 130/85
== END 2025-07-03 10:55 | disposition home or self-care (01) ==
LOC: HO.HMCC 09:38
PROVIDERS: PCP Internal Medicine; Visit Provider Internal Medicine
DX: J44.9 Chronic obstructive pulmonary disease, unspecified (principal); F17.200 Nicotine dependence, unspecified, uncomplicated; R03.0 Elevated blood-pressure reading, without diagnosis of hypertension